=== PATIENT | male | born 2000 | race African-American/Black ===

== ENCOUNTER 2024-09-04 15:44 | Emergency (ER) | payer OTHER, SELFPAY ==
[2024-09-04 15:47] VITALS: BP 164/46; PULSE 88; RESP 16; TEMP 36.6; O2SAT 98
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
== END 2024-09-04 17:23 | disposition home or self-care (01) ==
LOC: ANHED 17:15
PROVIDERS: Emergency Provider Emergency Medicine
DX: S59.902A Unspecified injury of left elbow, initial encounter (principal); S80.212A Abrasion, left knee, initial encounter; S80.211A Abrasion, right knee, initial encounter; V49.40XA Driver injured in collision with unspecified motor vehicles in traffic accident, initial encounter; S40.812A Abrasion of left upper arm, initial encounter
CPT/HCPCS: 99282